=== PATIENT | female | born 1990 | race African-American/Black ===

== ENCOUNTER 2018-12-29 20:32 | Emergency (ER) | payer MEDICAID, OTHER ==
[~2018-12-29] VITALS: Ht 165.1 cm; Wt 51.0 kg
[2018-12-29 21:00] VITALS: Ht 165.1 cm; Wt 51.0 kg
[2018-12-29] MEDS ORDERED: SOD CHLORIDE 0.9% 500 ML IV STA (22:39)
[2018-12-29] MEDS ORDERED: DIAZEPAM 5 MG/ML SYG IV ONE (23:00)
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
[2018-12-30] MEDS ORDERED: NAPR-985 PO (00:46)
[2018-12-30] MEDS ORDERED: CABE0.5T PO (00:46)
[2018-12-30] MEDS ORDERED: CYCL10TA7 PO (00:46)
[2018-12-30] MEDS ORDERED: AZIT250T PO (00:46)
[2018-12-30 01:00] VITALS: BP 95/62; PULSE 80; RESP 22
== END 2018-12-30 01:02 | disposition home or self-care (01) ==
LOC: E/R 20:32
DX: D35.2 Benign neoplasm of pituitary gland (principal); F17.210 Nicotine dependence, cigarettes, uncomplicated
CPT/HCPCS: 70110; 71045; 80053; 81001; 81025; 83540; 83615; 85025; 86850; 86900; 86901; 87086; 96361; 96374; J3360; J7040; Z7502